=== PATIENT | male | born 1975 | race African-American/Black ===

== ENCOUNTER 2021-04-20 11:35 | Emergency (ER) | payer OTHER ==
[2021-04-20 12:08] VITALS: BP 151/95; PULSE 66; TEMP 97.6; BMI 19.6
[2021-04-20] MEDS ORDERED: DIPHTH,PERTUSS(ACELL),TET 0.5 ML DISP.SYRIN IM ONE ×3 (13:03→13:11)
[2021-04-20] MEDS ORDERED: ACETAMINOPHEN 500 MG TABLET (FP) PO ONE (13:03)
[2021-04-20] MEDS ORDERED: ACETAMINOPHEN 500 MG TABLET (FP) ONE (13:06)
== END 2021-04-20 13:48 | disposition home or self-care (01) ==
LOC: JERFT 11:35
PROC: 0HQGXZZ Repair Left Hand Skin, External Approach (ICD-10-PCS; principal; 2021-04-20)
PROC: 3E0234Z Introduction of Serum, Toxoid and Vaccine into Muscle, Percutaneous Approach (ICD-10-PCS; 2021-04-20)
DX: S61.215A Laceration without foreign body of left ring finger without damage to nail, initial encounter (principal); W26.0XXA Contact with knife, initial encounter
CPT/HCPCS: 90715; 99283-25

== ENCOUNTER 2021-04-22 13:23 | Emergency (ER) | payer OTHER ==
[2021-04-22 13:29] VITALS: BP 161/73; PULSE 72; TEMP 98.7; BMI 24.7
[2021-04-22] MEDS ORDERED: BACITRACIN 15 GM TUBE TOPICAL OINTMENT ONE (14:26)
== END 2021-04-22 14:34 | disposition home or self-care (01) ==
LOC: JERFT 13:23
DX: Z48.00 Encounter for change or removal of nonsurgical wound dressing (principal)
CPT/HCPCS: 99281-25

== ENCOUNTER 2021-04-27 14:18 | Emergency (ER) | payer OTHER ==
[2021-04-27 14:27] VITALS: BP 138/82; PULSE 84; BMI 24.7
== END 2021-04-27 17:20 | disposition home or self-care (01) ==
LOC: JERFT 14:18
DX: Z48.01 Encounter for change or removal of surgical wound dressing (principal)
CPT/HCPCS: 99281-25

== ENCOUNTER 2021-04-30 16:22 | Emergency (ER) | payer OTHER ==
[2021-04-30 16:28] VITALS: BP 148/81; PULSE 75; TEMP 98.1; BMI 25.1
== END 2021-04-30 17:37 | disposition home or self-care (01) ==
LOC: JERFT 16:22
DX: Z48.00 Encounter for change or removal of nonsurgical wound dressing (principal)
CPT/HCPCS: 99281-25